=== PATIENT | male | born 1995 | race Hispanic/Latino ===

== ENCOUNTER 2019-07-23 11:28 | Emergency (ER) | payer BC, MEDICAID, OTHER ==
[2019-07-23] MEDS ORDERED: KETOROLAC TROMETHAMINE 60 MG/2 ML VIAL ONE (11:58)
== END 2019-07-23 13:11 | disposition home or self-care (01) ==
LOC: EDH 11:28
DX: R07.89 Other chest pain (principal); J45.909 Unspecified asthma, uncomplicated; Z72.0 Tobacco use; Z90.89 Acquired absence of other organs
CPT/HCPCS: 71046; 96372; 99284; J1885

== ENCOUNTER 2021-03-07 18:07 | Emergency (ER) | payer BC, OTHER ==
[~2021-03-07] VITALS: Ht 190.5 cm; Wt 117.9 kg
[2021-03-07 18:10] VITALS: BP 115/78
[2021-03-07 20:19] VITALS: BP 118/75
== END 2021-03-07 21:33 ==
LOC: EEVIPCON 18:07 → EDH 18:07
DX: S60.221A Contusion of right hand, initial encounter (principal); J45.909 Unspecified asthma, uncomplicated; Y35.893A Legal intervention involving other specified means, suspect injured, initial encounter; Y93.89 Activity, other specified; Y92.89 Other specified places as the place of occurrence of the external cause; Y99.8 Other external cause status
CPT/HCPCS: 73130